=== PATIENT | female | born 1940 | race Caucasian/White ===

== ENCOUNTER 2020-01-08 11:48 | Emergency (ER) | payer MEDICARE, OTHER, SELFPAY ==
[2020-01-08 11:49] VITALS: BP 132/84; PULSE 83; RESP 22; TEMP 36.8; O2SAT 95; BMI 27.1
--- NOTE | 2020-01-08 12:01 | EKG12_ITS ---
Test Reason : FALL/SYNCOPE Blood Pressure : / mmHG Vent. Rate : 080 BPM Atrial Rate : 080 BPM P-R Int : 160 ms QRS Dur : 110 ms QT Int : 378 ms P-R-T Axes : 057 024 005 degrees QTc Int : 435 ms Normal sinus rhythm Incomplete right bundle branch block Cannot rule out Inferior infarct , age undetermined Abnormal ECG Confirmed by ABBIE HOLLY, TRISTAN ([id number]), tape editor JACQUELINE LIMON ([id number]) on 01/12/2020 10:43:14 AM Referred By: AMA Confirmed By:TRISTAN LEIVA MD
--- NOTE | 2020-01-08 12:01 | RAD_ITS ---
STUDY: X-RAY - PELVIS AND RIGHT HIP REASON FOR EXAM: Female, 79 years old. Fall, right hip pain, leg pain TECHNIQUE: 3 views of the pelvis and hip. COMPARISON: None. FINDINGS: There is a non-specific bowel gas pattern. Normal visualized soft tissue structures. Normal bilateral iliac wings, sacroiliac joints and visualized sacrum. Normal bilateral superior and inferior pubic rami. Normal pubic symphysis. Normal bilateral ischial tuberosities. Normal visualized femoral head. Normal acetabulum. There is mild articular joint space narrowing of the hip. RAD/HIP, UNI W/ Pelvis 2-3 Views IMPRESSION: No acute abnormality is seen. Electronically Signed: Earl Salgado, at 12:45 EDT , Service support ,
--- NOTE | 2020-01-08 12:01 | RAD_ITS ---
STUDY: X-RAY - RIGHT KNEE REASON FOR EXAM: Female, 79 years old. fall, right hip pain, leg pain TECHNIQUE: 2 view(s) of the knee. COMPARISON: None. FINDINGS: Normal visualized distal femur. Degenerative spur is seen along the medial tibial plateau. Normal proximal tibiofibular articulation. There is mild degenerative arthrosis of the medial femorotibial compartment. Normal lateral femorotibial compartment. Normal patellofemoral articulation. The soft tissue structures are unremarkable. RAD/Knee 1 or 2 Views IMPRESSION: Degenerative arthrosis. Electronically Signed: Earl Salgado, at 12:46 EDT , Service support ,
--- NOTE | 2020-01-08 12:02 | ED.DCSUM_ITS ---
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 She was at home alone. She states that her legs gave out and she fell on the ground in the carpet in her living room. She had no prodromal symptoms and she stated that she did not hit her head or lose consciousness. Because of the severe pain in her right thigh and leg she was unable to get up and walk she laid on the ground for about 10 minutes until her came home and called EMS. She has been given fentanyl by EMS with improvement of her pain. Tetanus Immunization: Unknown Prior similar symptoms: No Recent Illness/Hospitalization: No Past Medical History - Allergies and Home Meds Allergies/Adverse Reactions: Allergies Gadolinium-MRI Contrast Medium [CONTRAST] Adverse Reaction (Intermediate, Verified 07/10/16 05:15) Rash Pt thinks the reaction was a rash,but is a poor historian Primary Care Physician: [facility] Doctor,Out of [NON-STAFF] - Prior records reviewed: Yes Surgical History: cholecystectomy, - - cataract left eye, tubal ligation, bilateral eye surgery, esophageal surgery Smoking Status: Never smoker - Family History Maternal Family History: Reports: Heart Disease - 80's Paternal Family History: Reports: Stroke - age 74 Review of Systems All systems negative except as indicated General: Denies: Chills, Fever, Sweats Eyes: Denies: Visual changes - bilaterally, Blurred Vision - bilaterally, Diplopia ENT: Denies: Rhinorrhea, Sore throat Cardiovascular: Denies: Chest pain, Palpitations Respiratory: Denies: Dyspnea, Cough, Dyspnea on exertion Gastrointestinal: Denies: Abdominal pain, Nausea, Vomiting, Diarrhea, Melena, Hematochezia Genitourinary: Denies: Dysuria, Hematuria, Frequency Musculoskeletal: Reports: Swelling, Extremity Pain. Denies: Myalgias, Arthralgias, Neck pain, Back pain Skin: Denies: Rash, Wounds Neurological: Denies: Headache, Weakness, Numbness Physical Exam Vital Signs/Narrative: Vital Signs Temp Pulse Resp BP Pulse Ox 01/08/20 11:49 98.3 F 83 22 H 132/84 H 95 Inital Vital Signs reviewed: Yes General: Well nourished, Well developed Head: Normocephalic, Atraumatic Eyes: Perrl, EOMI ENT: TM's clear, No hemotympanum or drainage, No trauma Neck: Nontender, Full ROM Cardiovascular: Regular rate, Regular rhythm, No murmurs Respiratory: No distress, CTA bilaterally, Chest nontender Abdomen: Soft, Nontender, Nondistended, Normal bowel sounds Back: Nontender Skin: Normal color, No rash Neurological: Alert, Oriented x3, Cranial nerves II-XII grossly intact, Normal Strength, Normal Sensation Psychological: Normal affect, Normal Mood Diagnostic/Tx/Re-eval Impressions Hip/Pelvis X-Ray 01/08/20 12:01 IMPRESSION: No acute abnormality is seen. Electronically Signed: Earl Salgado at 12:45 EDT , Service support , Knee X-Ray 01/08/20 12:01 IMPRESSION: Degenerative arthrosis. Electronically Signed: Earl Salgado at 12:46 EDT , Service support , Tibia/Fibula X-Ray 01/08/20 12:03 IMPRESSION: Normal x-ray examination of the tibia and fibula. Electronically Signed: Earl Salgado at 12:46 EDT , Service support , Femur X-Ray 01/08/20 12:10 IMPRESSION: Normal x-ray examination of the femur. Electronically Signed: Earl Salgado at 12:44 EDT , Service support , 01/08/20 12:01 HIP, UNI W/ Pelvis 2-3 Views [RAD] Stat Knee 1 or 2 Views [RAD] Stat 01/08/20 12:03 Xray Tibia [Tibia & Fibula 2 Views] [RAD] Stat 01/08/20 12:10 Xray Femur [Femur Min 2 Views] [RAD] Stat Laboratory Results 01/08/20 01/08/20 11:57 11:57 WBC 6.6 RBC 4.03 L Hgb 12.3 Hct 36.6 L MCV 90.8 MCH 30.5 MCHC 33.6 RDW Std Deviation 40.4 RDW Coeff of Julio Cesar 12.3 Plt Count 179 MPV 8.8 Immature Gran % (Auto) 0.800 Neut % (Auto) 67.1 Lymph % (Auto) 21.7 Wise % (Auto) 8.2 Eos % (Auto) 1.7 Baso % (Auto) 0.5 Absolute Neuts (auto) 4.4 Absolute Lymphs (auto) 1.42 Nucleated RBC % 0 Sodium 140 Potassium 4.1 Chloride 104 Carbon Dioxide 32.0 Anion Gap 4 L BUN 16 Creatinine 1.24 H Estim Creat Clear Calc 31.25 Est GFR (MDRD) Af Amer 54 L Est GFR (MDRD) Non-Af 44 L BUN/Creatinine Ratio 12.9 Glucose 105 Calcium 8.6 - Medical Decision Making Pain was treated with morphine. She had already been given fentanyl by squad. Laboratory work-up unremarkable. X-rays of the right hip with pelvis, right femur, right knee, as well as right tibia/fibula showed no acute findings. Patient's pain is improved. We will attempt to ambulate the patient prior to discharge. She is hemodynamically stable and her and her are both agreeable with plan. She declined analgesia for home. ED Disposition - Plan for ED Patient: Disposition: Home or Assisted Living Diagnosis: Contusion of right thigh, Contusion of right knee, Contusion of right lower leg, Contusion of right hip, Iron deficiency anemia, Hyperlipidemia, History of stroke, Hypothyroid Instructions: ED EXTREMITY CONTUSION Lower, ED SOFT TISSUE CONTUSION, ED CONTUSION Hip Referrals: [facility] Doctor,Out of [NON-STAFF] -
--- NOTE | 2020-01-08 12:03 | RAD_ITS ---
STUDY: X-RAY - RIGHT TIBIA AND FIBULA REASON FOR EXAM: Female, 79 years old. Fall, right hip pain, leg pain TECHNIQUE: 3 view(s) of the tibia and fibula were obtained. COMPARISON: None. FINDINGS: Normal visualized tibia. Normal visualized fibula. The soft tissue structures are unremarkable. RAD/Tibia & Fibula 2 Views IMPRESSION: Normal x-ray examination of the tibia and fibula. Electronically Signed: Earl Salgado, at 12:46 EDT , Service support ,
--- NOTE | 2020-01-08 12:04 | ED.DCSUM_ITS ---
History of Present Illness Chief Complaint: Fall Past Medical History - Allergies and Home Meds Allergies/Adverse Reactions: Allergies Gadolinium-MRI Contrast Medium [CONTRAST] Adverse Reaction (Intermediate, Verified 07/10/16 05:15) Rash Pt thinks the reaction was a rash,but is a poor historian Primary Care Physician: [facility] Doctor,Out of [NON-STAFF] - Surgical History: cholecystectomy, - - cataract left eye, tubal ligation, bilateral eye surgery, esophageal surgery Smoking Status: Never smoker - Family History Maternal Family History: Reports: Heart Disease - 80's Paternal Family History: Reports: Stroke - age 74 Physical Exam Vital Signs/Narrative: Vital Signs Temp Pulse Resp BP Pulse Ox 01/08/20 11:49 98.3 F 83 22 H 132/84 H 95 Diagnostic/Tx/Re-eval - Medical Decision Making Evaluate this patient with our physician drilling assistant. 79-year-old female fell at home injuring her right lower extremity complaining of pain at the distal thigh and right lower leg below the knee. States she is unable to stand on it, walk or bear weight. Denies any prior fracture or surgery to her right hip femur or lower leg. Denies any other injuries. States she did not hit her head. She is not on blood thinners. Patient denies being ill recently. Says she was in her normal state of health. Elderly female no acute distress vital signs stable afebrile. HEENT exam un remarkable atraumatic. Neck nontender. Lungs clear to auscultation. Heart regular rhythm. Chest wall nontender. Abdomen soft nontender. Pelvic girdle intact. No shortening or rotation of either hip. She does complain of pain on palpation to the right lower femur, knee and right proximal tibia. There is no gross bony deformity. There is swelling about the knee. Dorsi plantarflexion intact of both feet. Ankle and feet are nontender. Left lower extremity is nontender. Upper extremities are nontender with normal banquet set up person strength and range of motion. Back is nontender. Neurologically she is awake and alert. X-rays are being obtained of her right lower extremity. Radiologist and myself reviewed the films and the pelvis, right hip, right femur, right knee and right tib-fib all showed chronic changes but no acute fracture or dislocations. She was pretreated by the squad with fentanyl. Currently she does not need any more for pain but she may during the evaluation. Impressions: Acute fall Acute right lower extremity injury / contusion ED Disposition - Plan for ED Patient: Referrals: [facility] Doctor,Out of [NON-STAFF] -
--- NOTE | 2020-01-08 12:10 | RAD_ITS ---
STUDY: X-RAY - RIGHT FEMUR REASON FOR STUDY: Female, 79 years old. Fall, right hip pain, leg pain TECHNIQUE: 4 view(s) of the femur. COMPARISON: None. FINDINGS: Normal visualized femur. Normal visualized soft tissue structure. RAD/Femur Min 2 Views IMPRESSION: Normal x-ray examination of the femur. Electronically Signed: Earl Salgado, at 12:44 EDT , Service support ,
[2020-01-08 12:15] LABS: Absolute Lymphocyte Count 1.42 X10^3/uL (0.83-4.51); Absolute Neutrophil Count 4.4 X10^3/uL (2.0-7.7); Basophil# 0.03 X10^3/uL; Basophil% 0.5 % (0-1); Eosinophil# 0.11 X10^3/uL; Eosinophils% 1.7 % (0-5); Hematocrit 36.6 % (37-47); Hemoglobin 12.3 g/dL (12.0-15.0); Lymphocyte # 1.42 X10^3/ul (4.0); Lymphocyte % 21.7 % (19-41); Mean Corp Hgb Conc 33.6 g/dL (32-36); Mean Corpuscular Hgb 30.5 pg (27.0-32.0); Mean Corpuscular Volume 90.8 fL (81-99); Mean Platelet Vol. 8.8 fl (6.2-12.0); Monocyte# 0.54 X10^3/uL; Monocyte% 8.2 % (0-10); NRBC Flagged by Analyzer 0 % (0-5); Neutrophil % 67.1 % (47-70); Platelet Count 179 K/mm3 (150-450); RBC Distribution Width CV 12.3 % (11.6-14.6); RBC Distribution Width SD 40.4 fl (35.1-43.9); Red Blood Count 4.03 M/mm3 (4.2-5.4); White Blood Count 6.6 K/mm3 (4.4-11.0)
[2020-01-08 12:27] LABS: Anion Gap 4 (5-15); BUN 16 mg/dL (7-18); BUN/Creat Ratio 12.9 RATIO (10-20); Calcium,Total 8.6 mg/dL (8.5-10.1); Chloride 104 mmol/L (98-107); Creatinine, Serum 1.24 mg/dL (0.55-1.02); EST Glomerular Filtration Rate 44 mL/min (>60); Est Glom Filt Rate - Afr Amer 54 mL/min (>60); Estimated Creatinine Clearance 31.25 ml/min; Glucose 105 mg/dL (74-106); Potassium 4.1 mmol/L (3.5-5.1); Sodium Level 140 mmol/L (136-145)
[2020-01-08] MEDS: Morphine 4 MG/ML Syringe IV (12:48)
--- NOTE | 2020-01-08 14:13 | CM.ED ---
Social Work Consult: No PCP Informant: Self Referral. Met with patient and patient spouse, [place] in room. Introduced self and social research assistant role. Patient agreeable to speaking with this social research assistant. This social research assistant broached topic of patient noting to have no PCP per echart. Patient states to have a PCP through [facility] but to not be sure who yet as patient PCP recently retired and patient is getting set up with a new doctor. Patient states no concern for community support and is independent in the home. Patient lives with spouse. Patient denies having a Health Care Power of bombsight specialist and is declining advanced care planning information. This social research assistant did explained to patient the value of having a Health Care Power of Social Psychologist, patient continues to decline further information or to complete forms. Support provided. Patient plans to return to home with spouse. No further needs indicated. Freedom BURCH, L[place]
[2020-01-08 15:42] VITALS: BP 128/60; PULSE 81; RESP 16; RESP 18; O2SAT 92; O2SAT 95
== END 2020-01-08 16:14 | disposition home or self-care (01) ==
PROVIDERS: Emergency Provider Physician Assistant Medical
DX: S70.01XA Contusion of right hip, initial encounter (principal); S70.11XA Contusion of right thigh, initial encounter; S80.01XA Contusion of right knee, initial encounter; S80.11XA Contusion of right lower leg, initial encounter; W01.0XXA Fall on same level from slipping, tripping and stumbling without subsequent striking against object, initial encounter; Y93.9 Activity, unspecified; Y92.009 Unspecified place in unspecified non-institutional (private) residence as the place of occurrence of the external cause; Y99.9 Unspecified external cause status; Z88.8 Allergy status to other drugs, medicaments and biological substances; Z90.49 Acquired absence of other specified parts of digestive tract; Z82.49 Family history of ischemic heart disease and other diseases of the circulatory system; Z86.73 Personal history of transient ischemic attack (TIA), and cerebral infarction without residual deficits
CPT/HCPCS: 73502; 73552; 73560; 73590; 80048; 85025; 93005; 96374; 99285; A4216